=== PATIENT | female | born 1940 | race African-American/Black ===

== ENCOUNTER 2021-08-25 15:22 | Emergency (ER) | payer OTHER, MEDICAID ==
[~2021-08-25] VITALS: Ht 162.6 cm; Wt 50.0 kg
[~2021-08-25 15:22] MED LIST: AMLO5TAB88 PO; ASPI-1497 PO; CARI350T28 PO; DIPY25TA34 PO; ESOM20CA PO; EZET10TA13 PO; HYDR1CAP; IPRA4AER; ISOS60TA6 PO; NEBI5TAB3 PO; SIMV-43 PO; VITA1CAP PO
[2021-08-25 17:27] LABS: EOSINOPHILS % 1.2 % (0.0-5.0); HEMOGLOBIN. 12.5 g/dL (12.0-16.0); LYMPHOCYTES % 27.6 % (20.0-50.0); MEAN CORPUSCULAR HEMOGLOBIN 29.1 pg (28.0-32.0); MEAN CORPUSCULAR VOLUME 88.1 fL (81.0-99.0); MEAN PLATELET VOLUME 7.3 fl (7.4-10.4); MONOCYTES % 6.5 % (2.0-8.0); NEUTROPHILS % 63.7 % (40.0-76.0); PLATELET 303 x1000/uL (130-400); RED BLOOD CELL COUNT 4.31 mill/uL (4.2-5.4); RED CELL DISTRIBUTION WIDTH 15.7 % (11.6-14.6)
[2021-08-25 17:39] LABS: CHLORIDE 108 mEq/L (98-107)
[2021-08-25 19:40] VITALS: BP 140/89
== END 2021-08-25 19:00 | disposition home or self-care (01) ==
LOC: ER 15:22
DX: R55 Syncope and collapse (principal); I10 Essential (primary) hypertension; G40.909 Epilepsy, unspecified, not intractable, without status epilepticus; E78.00 Pure hypercholesterolemia, unspecified; Z86.73 Personal history of transient ischemic attack (TIA), and cerebral infarction without residual deficits; Z79.82 Long term (current) use of aspirin
CPT/HCPCS: 36415; 71045; 80053; 82962; 83880; 84484; 85025; 93005; 99285